=== PATIENT | female | born 1960 | race Caucasian/White ===

== ENCOUNTER 2019-08-26 10:07 | Emergency (ER) | payer MEDICARE, OTHER, SELFPAY ==
[2019-08-26 10:28] VITALS: BP 142/93; PULSE 90; RESP 17; TEMP 36.6; O2SAT 97; BMI 34.3
--- NOTE | 2019-08-26 11:04 | DI.RAD.S_ITS ---
PROCEDURE: XR TOE LT MIN 2V INDICATIONS: pain, injury TECHNIQUE: 3 views of the 5th toe(s) acquired. COMPARISON: None. FINDINGS: Bones: There is a minimally displaced fracture of the distal aspect of the proximal phalanx of the 5th toe. No definite intra-articular involvement can be seen. No additional fractures are detected. No suspicious lytic or blastic lesions are seen. Age-appropriate bony degenerative changes are seen. Soft tissues: No suspicious soft tissue densities. IMPRESSION: Minimally displaced 5th toe fracture, involving the proximal phalanx. Dictated by: Ant Beltre M.D. on 08/26/2019 at 10:37 Approved by: Ant Beltre M.D. on 08/26/2019 at 10:38
--- NOTE | 2019-08-26 11:29 | ED_ITS ---
HPI - Extremity Injury (Lower) <Eda De, COMPOSING ROOM MACHINIST-BC - Last Filed: 08/26/19 13:30> General Chief Complaint: Extremity Injury, Lower Stated Complaint: left great toe injury x4 days Time Seen by Provider: 08/26/19 11:03 Source: patient Mode of arrival: Family Vehicle Limitations: no limitations History of Present Illness HPI Narrative: Female nonsmoker with history of fibromyalgia presents with a chief complaint of left 5th toe pain for 4 days. She states that she was walking in her hotel room several nights ago and stubbed it. She states that she hit it on a leather [employer]. She states that her left 5th toe was pointed at a 90 degree angle. She states she put it back in place, tightened with dental floss and has since shannan taped it. She has been using her as needed oxycodone which she has prescribed for fibromyalgia and has applied ice. She denies any other injuries. She is concerned about fracture or if she dislocated it etc. She denies any previous injuries to the area. Related Data Home Medications Medication Instructions Recorded Confirmed [MILK THISTLE] Q DAY #0 12/05/16 [PAPAYA ENZYMES] QID #0 12/05/16 [TURMERIC] Q DAY #0 12/05/16 biotin 6,000 mcg PO Q DAY #0 12/05/16 celecoxib [Celebrex] 400 mg PO BID #0 12/05/16 cyclobenzaprine 20 mg PO HS #0 12/05/16 magnesium 200 mg PO Q DAY #0 12/05/16 pregabalin [Lyrica] 75 mg PO BID #0 12/05/16 trazodone 100 mg PO HS #0 12/05/16 clotrimazole 10 mg PO 5XD #0 07/09/17 naltrexone 5 mg PO QDAY #0 07/09/17 Previous Rx's Medication Instructions Recorded oxycodone 10 mg PO Q4HP PRN #60 tab 12/09/16 hydrocodone-acetaminophen [[place]] 1 tab PO Q4H PRN #40 tab 07/12/17 Allergies Allergy/AdvReac Type Severity Reaction Status Date / Time levofloxacin [LEVOFLOXACIN] Allergy Unknown TENDONITIS Unverified 01/12/18 12:13 adhesive [ADHESIVE] AdvReac Intermediate SOME TAPE Unverified 01/12/18 12:13 CAUSES REDNESS Review of Systems <PIETER Chin - Last Filed: 08/26/19 13:30> Review of Systems Narrative: GENERAL: Denies chills, fatigue, malaise, fever, sweats. HEENT: Denies sinus pain, ear pain, sore throat, difficulty swallowing, dizziness. RESPIRATORY: Denies dyspnea, cough, wheezing, hemoptysis, sputum. CARDIOVASCULAR: Denies chest pain, palpitations, orthopnea, edema, GASTROINTESTINAL: Denies nausea, vomiting, abdominal pain, diarrhea, constipation, melena. : Denies dysuria, frequency, incontinence, hematuria, urinary retention. MUSCULOSKELETAL: See HPI SKIN: See HPI NEUROLOGIC: Denies weakness, headache, numbness, change in speech, confusion, seizures, incoordination. PSYCHIATRIC: No concerning psychosocial issues. 12 point review of systems is negative except for those stated above Patient History <PIETER Chin - Last Filed: 08/26/19 13:30> Medical History Fibromyalgia (Acute) alcohol intake frequency: a few times a week Substance Use Type: does not use Exam <PIETER Chin - Last Filed: 08/26/19 13:30> Narrative Exam Narrative: GENERAL: This is a well-nourished, well-developed patient, in no acute distress HEAD: Atraumatic. Normocephalic. No temporal or scalp tenderness. EYES: Pupils equal round and reactive. Extraocular motions intact. No scleral icterus. No injection or drainage. ENT: Nose without bleeding, purulent drainage or septal hematoma. Throat without erythema, tonsillar hypertrophy or exudate. Uvula midline. Airway patent. NECK: Trachea midline. No JVD or lymphadenopathy. Supple, nontender, no meningeal signs. CARDIOVASCULAR: Regular rate and rhythm RESPIRATORY: No cough. No increased respiratory effort. No accessory muscle use. EXTREMITIES: Left 5th toe pain to palpation. Capillary refill less than 2 seconds. Positive pedal pulses left foot. Slight ecchymosis noted at the base of left 5th toe. BACK: Nontender without deformity or crepitance. No flank tenderness. NEURO: AOx3. SKIN: No rash or erythema or ecchymosis noted on visible skin other than on extremity exam Initial Vital Signs Initial Vital Signs: Vital Signs Temperature 97.9 F 08/26/19 10:28 Pulse Rate 90 08/26/19 10:28 Respiratory Rate 17 08/26/19 10:28 Blood Pressure 142/93 H 08/26/19 10:28 Pulse Oximetry 97 08/26/19 10:28 <Anca Adams DO - Last Filed: 08/29/19 07:05> Initial Vital Signs Initial Vital Signs: Vital Signs Temperature 97.9 F 08/26/19 10:28 Pulse Rate 90 08/26/19 10:28 Respiratory Rate 17 08/26/19 10:28 Blood Pressure 142/93 H 08/26/19 10:28 Pulse Oximetry 97 08/26/19 10:28 Procedures <PIETER Chin - Last Filed: 08/26/19 13:30> Orthopedic Splinting/Casting Injury #1: Side: left Upper Extremity Immobilizer: shannan tape Lower Extremity Injury Location: toe Lower Extremity Immobilizer: post-op shoe Post splinting neuro exam: intact Post splinting vascular exam: intact Placed by: Nursing Course <PIETER Chin - Last Filed: 08/26/19 13:30> Orders Ordered: ED Orders 08/26/19 11:04 XR toe LT min 2V Stat Vital Signs Vital signs: Vital Signs - 8 hr 08/26/19 10:28 08/26/19 12:41 Temperature 97.9 F Pulse Rate 90 84 Respiratory Rate 17 16 Blood Pressure 142/93 H Blood Pressure [Left Arm] 152/84 H Pulse Oximetry 97 100 <Anca Adams DO - Last Filed: 08/29/19 07:05> Orders Ordered: ED Orders 08/26/19 11:04 XR toe LT min 2V Stat Vital Signs Vital signs: Vital Signs - 8 hr 08/26/19 10:28 08/26/19 12:41 Temperature 97.9 F Pulse Rate 90 84 Respiratory Rate 17 16 Blood Pressure 142/93 H Blood Pressure [Left Arm] 152/84 H Pulse Oximetry 97 100 MDM - Extremity Injury (Lower) <PIETER Chin - Last Filed: 08/26/19 13:30> Imaging Data toe xray : Radiologist's impression: [address] [place] [address] XRay Report Signed Patient: Melissa Maldonado JMR#: [id number] : 2Acct:[id number] Age/Sex: 58 / FDate of Service: 08/26/19 Loc: ED Accession Number: [id number] Procedure: XR toe LT min 2V Ordering Provider: Eda De-EMILIO PROCEDURE: XR TOE LT MIN 2V INDICATIONS: pain, injury TECHNIQUE: 3 views of the 5th toe(s) acquired. COMPARISON: None. FINDINGS: Bones: There is a minimally displaced fracture of the distal aspect of the proximal phalanx of the 5th toe. No definite intra-articular involvement can be seen. No additional fractures are detected. No suspicious lytic or blastic lesions are seen. Age-appropriate bony degenerative changes are seen. Soft tissues: No suspicious soft tissue densities. IMPRESSION: Minimally displaced 5th toe fracture, involving the proximal phalanx. Dictated by: Ant Beltre M.D. on 08/26/2019 at 10:37 Approved by: Ant Beltre M.D. on 08/26/2019 at 10:38 [facility] Narrative Medical decision making narrative: The patient is a 58-year-old female presents with a chief complaint of a toe injury. She states that she stepped it several days ago, and had to put it back into place. X-ray is concerning for. She is neurovascularly intact. She was placed in a postoperative shoe and given shannan tape. I discussed at length [id number] medications as needed and able for pain, rest ice compression elevation. Patient has no questions or concerns upon discharge and states understanding return precautions as well as follow-up care. Encourage PCP follow-up in the next few days and coming back to the emergency department for any acute concerns. Discharge Plan Departure Patient Disposition: Home Clinical Impression: Fracture of toe Qualifiers: Encounter type: initial encounter Toe: lesser toe Fracture type: closed Phalanx: proximal Fracture alignment: displaced Laterality: left Qualified Code(s): S92.512A - Displaced fracture of proximal phalanx of left lesser toe(s), initial encounter for closed fracture Discharge Date/Time: 08/26/19 13:08 Instructions: DI for Toe Fracture, How To Perform RICE (Rest, Ice, Compress, Elevate) Activity Restrictions/Additional Instructions: Unfortunately you broke your toe. Please use rest ice compression elevation as well as [id number] pain medications as needed And able. Please use the shannan tape and postoperative shoe as we discussed. Please come back to the emergency department for any acute concerns. Please follow up with primary care provider in a few days. Prescriptions: No Action pregabalin [Lyrica] 75 MG capsule 75 mg PO BID Qty: 0 RF: 0 celecoxib [Celebrex] 200 MG capsule 400 mg PO BID Qty: 0 RF: 0 cyclobenzaprine 10 MG tablet 20 mg PO HS Qty: 0 RF: 0 trazodone 100 MG tablet 100 mg PO HS Qty: 0 RF: 0 magnesium 200 MG tablet 200 mg PO Q DAY Qty: 0 RF: 0 biotin 2,500 MCG capsule 6,000 mcg PO Q DAY Qty: 0 RF: 0 [MILK THISTLE] Q DAY Qty: 0 RF: 0 [PAPAYA ENZYMES] QID Qty: 0 RF: 0 [TURMERIC] Q DAY Qty: 0 RF: 0 oxycodone 10 MG tablet 10 mg PO Q4HP PRNQty: 60 RF: 0 naltrexone 50 MG tablet 5 mg PO QDAY Qty: 0 RF: 0 clotrimazole 10 MG jenniffer 10 mg PO 5XD Qty: 0 RF: 0 hydrocodone-acetaminophen [[place]] 5 MG/325 MG tablet 1 tab PO Q4H PRNQty: 40 RF: 0 Referrals: [facility] [Provider Group] [facility] [Outside]
[2019-08-26 12:41] VITALS: BP 152/84; PULSE 84; RESP 16; O2SAT 100
== END 2019-08-26 13:08 | disposition home or self-care (01) ==
PROVIDERS: Emergency Provider Nurse Practitioner Family
DX: S92.512A Displaced fracture of proximal phalanx of left lesser toe(s), initial encounter for closed fracture (principal); W22.8XXA Striking against or struck by other objects, initial encounter
CPT/HCPCS: 29550; 73660; 99282; 99283

== ENCOUNTER 2019-12-04 07:37 | Day surgery (SDC) | payer MEDICARE, OTHER, SELFPAY ==
--- NOTE | 2019-12-04 | PATH_ITS ---
[facility] Accession Number: [id number] . 01 Material submitted: . esophagus, E-G Junction - GE JUNCTION . 02 Diagnosis: Gastroesophageal Junction, Biopsy: Squamocolumnar junctional mucosa with no diagnostic abnormality. Negative for intestinal metaplasia. Negative for dysplasia and malignancy. . V 12/05/2019 0935 Local . 02 Electronically signed: . Avinash Gonzalez MD, PhD, Pathologist NPI- [id number] . 01 Gross description: . GE JUNCTION: Received in formalin are 3 fragment(s) of pena, soft tissue measuring 0.1 x 0.1 x 0.1 cm to 0.3 x 0.2 x 0.2 cm submitted entirely in 1 cassette(s) [place] [place]/04/2019 193 Local . 02 Pathologist provided ICD-10: K21.9 . 02 CPT . 195979 Performed at: 01 [facility] [address] [facility], [place], [place] [id number] MD Quique Gilliam MD Phone: [phone] Performed at: 02 [facility] [address] [place], [place] [id number] MD Sushma Biggs MD Phone: [phone]
[2019-12-04 07:50] VITALS: BP 132/89; PULSE 85; RESP 16; TEMP 36.6; BMI 26.5
--- NOTE | 2019-12-04 08:23 | P.HP_ITS ---
History of Present Illness History of Present Illness Chief complaint: [id number] Narrative: Interval-no interval changes in health. Feels well today. 11/01/19 This is a 58-year-old woman with longstanding diverticular disease. She has many episodes of diverticulitis and ultimately underwent a sigmoid resection of the outside facility in 2013. Despite this she continues to have recurring episodes of diverticulitis, her last 1 was approximately 2 months ago was uncomplicated and managed at an outside facility. Her abdominal pain is largely resolved but she still has a minimal amount of left lower quadrant tenderness. She is referred to the office for colonoscopy. In addition her history is significant for Joe-en-Y gastric bypass and she subsequently had significant amount of gastroesophageal reflux disease, she is not currently on a PPI. Patient History Medical History COPD (chronic obstructive pulmonary disease) (Acute) Esophagitis (Acute) Fibromyalgia (Acute) GERD (gastroesophageal reflux disease) (Acute) Hypertension complications (Acute) IBS (irritable bowel syndrome) (Acute) Surgical History Gastric bypass status for obesity (Acute) Family & Social History Family History Mother Hypertension Father Diabetes mellitus Social History: household members spouse Tobacco & Substance use: Smoking Status Former smoker alcohol intake current alcohol intake frequency a few times a week Substance Use Type does not use Meds Home Medications and Allergies Home Medications Medication Instructions Recorded Confirmed Type [MILK THISTLE] Q DAY #0 12/05/16 11/01/19 History [PAPAYA ENZYMES] QID #0 12/05/16 11/01/19 History [TURMERIC] Q DAY #0 12/05/16 11/01/19 History biotin 6,000 mcg PO Q DAY #0 12/05/16 11/01/19 History celecoxib [Celebrex] 400 mg PO BID #0 12/05/16 11/01/19 History cyclobenzaprine 20 mg PO HS #0 12/05/16 11/01/19 History magnesium 200 mg PO Q DAY #0 12/05/16 11/01/19 History pregabalin [Lyrica] 75 mg PO BID #0 12/05/16 11/01/19 History trazodone 100 mg PO HS #0 12/05/16 11/01/19 History oxycodone 10 mg PO Q4HP PRN #60 tab 12/09/16 11/01/19 Rx clotrimazole 10 mg PO 5XD #0 07/09/17 11/01/19 History naltrexone 5 mg PO QDAY #0 07/09/17 11/01/19 History hydrocodone-acetaminophen [[place]] 1 tab PO Q4H PRN #40 tab 07/12/17 11/01/19 Rx cyanocobalamin (vitamin B-12) 1,000 mcg PO DAILY 11/01/19 11/01/19 History 1,000 mcg capsule Allergies Allergy/AdvReac Type Severity Reaction Status Date / Time levofloxacin [LEVOFLOXACIN] Allergy Unknown TENDONITIS Unverified 12/04/19 08:17 adhesive [ADHESIVE] AdvReac Intermediate SOME TAPE Unverified 11/01/19 13:33 CAUSES REDNESS Review of Systems Review of Systems Narrative: A 10 point review of systems is negative except as noted in the HPI Exam Vital Signs (past 8 hours): - 12/04/19 07:50 Temperature 97.8 F Pulse Rate 85 Respiratory Rate 16 Blood Pressure 132/89 Oxygen Delivery Method Room Air Narrative Exam Narrative: General-no acute distress, well nourished HEENT-moist mucous membranes, no scleral icterus Neck-supple, no lymphadenopathy Chest- non labored respirations, clear to auscultation bilaterally Cardiac-regular rate no peripheral edema Abdomen-soft, nontender, non distended Extremities-warm, well perfused Neurological-alert and oriented, no focal deficits Assessment & Plan Assessment and plan (1) Screening for colon cancer: Current visit: Yes Status: Acute (2) GERD (gastroesophageal reflux disease): Current visit: Yes Status: Acute Assessment & Plan narrative: 58-year-old female with a long history of diverticular disease. She underwent a sigmoid colectomy at an outside facility in 2013 but despite this she had a recent episode of diverticulitis uncomplicated managed with antibiotics 2 months ago. She is recovering from that but continues to have some mild left lower quadrant pain. A colonoscopy is indicated in the setting of of recent diverticulitis has now been appropriate period of time between the illness to in order scope her safely. In addition she has a history of a Joe-en-Y gastric bypass and significant gastroesophageal reflux disease for which performing a a esophagoduodenoscopy is indicated as well. We discussed the nature of these procedures including the risks of bleeding infection perforation need for further procedure.
[2019-12-04] MEDS: SODIUM CHLORIDE 0.9% 1,000 ML 200 ML IV (08:29)
--- NOTE | 2019-12-04 08:57 | PM.OP.ENDO ---
Operative Date/Time/Diagnoses Date of procedure: 12/04/19 Time of procedure: 08:57 Pre-op diagnosis: Screening colonoscopy, GERD Post-op diagnosis: same Procedure & Clinicians Study performed: colonoscopy esophagoduodenoscopy Same procedure as scheduled: Yes Indications: Screening colonoscopy,worsening GERD Surgeon: Nilton Hernnadez Procedure Notes SCOAP/Timeout: performed Procedure in detail: Patient placed in left lateral decubitus position. Time out was performed. Procedural sedation was administered with Versed and Fentanyl. A bite block was placed. the scope was inserted into the mouth and advanced through the esophagus and into the stomach. She had a previous gastric bypass the GJ anastamosis was normal. The scope was retroflexed within the stomach and there was no hiatal hernia. No ulcers, or gastritis. The scope was withdrawn into the esophagus the Z line was seen at 30 cm from the incisions. There was no hernandez's esophagitis or masses or strictures. 4 random biopsies of the Z line were taken with forceps. Stomach was desufflated and scope removed. Patient tolerated procedure well. Patient placed in left lateral decubitus position. Time out was performed. Procedural sedation was administered with Versed and Fentanyl. A rectal exam demonstrated no external hemorrhoids no internal masses. Colonoscopy scope was placed into the rectum and advanced through the colon to the cecum. The ileocecal valve was identified. The scope was then slowly withdrawn examining colon thoroughly in all directions. The colonoscopy was notable for the following 1. Ernst diverticulosis 2. Quality of prep fair 3. Grade 1 internal hemorrhoids Scope withdrawal time: 6 Sedation minutes: 25 Findings: diverticulosis and internal hemorrhoids Specimen(s): other (GE junction) Complications: none Impression: Diverticulosis, normal gastric anatomy sp bypass Post-procedure Recommendations: Colonscopy in 10 years and High fiber diet Disposition: same day surgery
[2019-12-04 09:00] VITALS: BP 158/96; PULSE 86; RESP 20; TEMP 36.2; O2SAT 97
[2019-12-04] MEDS: fentaNYL 250 MCG/5 ML INJ IV (09:00)
[2019-12-04] MEDS: LIDOCAINE 4% SOLN 50 ML 20 ML TOP (09:00)
[2019-12-04] MEDS: MIDAZOLAM 5 MG/5 ML VIAL IV (09:01)
[2019-12-04 09:05] VITALS: BP 153/89; PULSE 85; RESP 16; O2SAT 95
[2019-12-04 09:10] VITALS: BP 127/98; PULSE 90; RESP 20; O2SAT 96
[2019-12-04 09:20] VITALS: BP 155/92; PULSE 82; RESP 20; O2SAT 97
== END 2019-12-04 09:35 | disposition home or self-care (01) ==
PROVIDERS: PCP Family Medicine; Referring Provider Surgery; Visit Provider Surgery
PROC: 0DJ08ZZ Inspection of Upper Intestinal Tract, Via Natural or Artificial Opening Endoscopic (ICD-10-PCS; CPT 43235; principal; 2019-12-04 08:30)
PROC: 0DJD8ZZ Inspection of Lower Intestinal Tract, Via Natural or Artificial Opening Endoscopic (ICD-10-PCS; CPT 45378; 2019-12-04 08:30)
DX: Z12.11 Encounter for screening for malignant neoplasm of colon (principal); K21.9 Gastro-esophageal reflux disease without esophagitis; K57.30 Diverticulosis of large intestine without perforation or abscess without bleeding; K64.0 First degree hemorrhoids
CPT/HCPCS: 43239; G0121; 99152; 99153; J2250; J3010

== ENCOUNTER → 2021-10-21 10:00 | Outpatient (CLI) | payer MEDICARE, OTHER, SELFPAY ==
[2021-10-21 11:35] LABS: Add Manual Diff / Slide Review NO; Basophils Absolute Auto 0 /uL (0-100); Basophils Percent Auto 0.4 % (0-2); Eosinophils Absolute Auto 0 /uL (0-450); Eosinophils Percent Auto 0.5 % (2-4); Hematocrit 43.2 % (36-46); Hemoglobin 14.4 g/dL (12.0-16.0); Lymphocytes Absolute Auto 1800 /uL (1100-4500); Mean Corpuscular HGB Conc 33.4 % (30-36); Mean Corpuscular Hemoglobin 32.1 PG (26-34); Mean Corpuscular Volume 96.2 fL (80-100); Monocytes Absolute Auto 500 /uL (0-900); Monocytes Percent Auto 6.8 % (3-14); Neutrophils Absolute Auto 5300 /uL (1500-7000); Neutrophils Percent Auto 69.3 % (50-75); Platelet Count 259 X10^3/uL (150-400); Red Blood Cell Count 4.49 X10^6/uL (4.0-5.2); Red Cell Distribution Width 13.5 % (11.6-14.8); White Blood Cell Count 7.7 X10^3/uL (4.5-11.0)
[2021-10-21 12:03] LABS: BUN Creatinine Ratio 15.8 (6-22); Blood Urea Nitrogen 9 mg/dL (7-17); Calcium 9.5 mg/dL (8.4-10.2); Carbon Dioxide 30 mmol/L (22-32); Chloride 101 mmol/L (98-107); Estimated Glomerular Filt Rate > 60.0 mL/min (>60); Glucose 111 mg/dL (70-100); HEMOLYSIS < 15 (0-50); Potassium 4.6 mmol/L (3.4-5.1); Sodium 136 mmol/L (137-145)
[2021-10-21 12:09] LABS: Hemoglobin A1C% w Est Avg Glu 5.3 % (4.0-6.0)
== END ==
PROVIDERS: PCP Family Medicine; Referring Provider Orthopaedic Surgery; Visit Provider Orthopaedic Surgery
DX: Z01.818 Encounter for other preprocedural examination (principal); R73.9 Hyperglycemia, unspecified; M25.562 Pain in left knee; Z01.812 Encounter for preprocedural laboratory examination
CPT/HCPCS: 36415; 80048; 83036; 85025; 93005; 93010

== ENCOUNTER → 2021-11-17 11:27 | Outpatient (CLI) | payer MEDICARE, OTHER, SELFPAY ==
[2021-11-17 13:49] LABS: COVID19 -Nasal RAPID Negative (Negative)
== END ==
PROVIDERS: PCP Family Medicine; Visit Provider Family Medicine Sleep Medicine
DX: Z20.822 Contact with and (suspected) exposure to COVID-19 (principal)
CPT/HCPCS: 87635; C9803

== ENCOUNTER 2021-11-19 12:12 | Day surgery (SDC) | payer MEDICARE, OTHER, SELFPAY ==
[2021-10-30 09:36] VITALS: BMI 35.4
[2021-11-19] VITALS (14 sets, daily range): BP systolic 110–179; BP diastolic 59–92; PULSE 53–82; RESP 15–18; TEMP 35.8–37.3; O2SAT 95–99; BMI 35.4
--- NOTE | 2021-11-19 08:00 | DI.RAD.S_ITS ---
PROCEDURE: XR KNEE RT 1TO2V INDICATIONS: post op total knee TECHNIQUE: 2 view(s) of the knee acquired. COMPARISON: [facility], , KNEE 1-2 VIEWS LEFT, 04/16/2014, 10:39. FINDINGS: Suboptimal cross-table lateral view. Bones: Patient is status post knee joint arthroplasty. Hardware components are in expected positions. Visualized bony structures are intact. Soft tissues: Overlying postoperative changes are noted. IMPRESSION: Expected postop appearance. Dictated by: Williams Cooper M.D. on 11/19/2021 at 17:17 Approved by: Williams Cooper M.D. on 11/19/2021 at 17:17
[2021-11-19] MEDS: ACETAMINOPHEN 325 MG TABLET 975 MG PO (13:16)
[2021-11-19] MEDS: CELECOXIB 200 MG CAPSULE PO (13:16)
[2021-11-19] MEDS: PREGABALIN 75 MG CAPSULE PO (13:16)
[2021-11-19] MEDS: LACTATED RINGERS 1,000 ML 42 ML IV ×2 (13:28→16:35)
--- NOTE | 2021-11-19 14:16 | PM.PREOP ---
Pre-operative Note COVID-19 COVID-19 status: Negative Result date/Date tested (Pos, Neg/Pending): 11/17/21 Criteria for continued procedure: Increased loss of function, Continuing or worsening of significant or severe pain and Non-surgical alternatives not available or appropriate per current SOC Interval Note History & Physical reviewed/Exam performed by Physician: Yes Changes to H&P: No
[2021-11-19] MEDS: TRANEXAMIC ACID 1,000 MG VIAL 1000 MG INJ ×2 (15:08→16:19)
[2021-11-19] MEDS: CEFAZOLIN 2 GM/20 ML SYRINGE IV (15:10)
--- NOTE | 2021-11-19 15:32 | SUR.OPER ---
Supine on padded OR bed. Pillow under head, arms secured on padded armboards <90 degree abduction. Safety belt across torso. Non-operative leg secured with tape over blanket over lower leg. Operative leg secured in [employer] positioner.
[2021-11-19] MEDS: BUPIVACAINE LIPOSOME 266 MG/20 ML VIAL INJ (15:38)
[2021-11-19] MEDS: MORPHINE 4 MG/ML INJ INJ (15:39)
[2021-11-19] MEDS: BUPIVACAINE 0.25% W/ EPI 30 ML VIAL 60 ML INJ (15:41)
--- NOTE | 2021-11-19 16:31 | PM.OP.1 ---
Operative Date/Time/Diagnoses Date of procedure: 11/19/21 Time of procedure: 16:31 Pre-op diagnosis: Right knee osteoarthritis Post-op diagnosis: same Procedure & Clinicians Procedure: Right total knee replacement Same procedure as scheduled: Yes Indications: The patient has had progressively worsening right knee pain with radiographic changes consistent with arthritis. Non-operative management has failed and the patient has requested total knee replacement. The risks, benefits and alternatives to surgery were discussed with the patient prior to proceeding. Risks discussed included, but were not limited to, failure to relieve pain, stiffness, infection, nerve damage, deep venous thrombosis, pulmonary embolism, stroke, coma, heart attack, permanent paralysis and , as well as the potential need for eventual revision of the prosthetic. Surgeon: Henry Olmos Data Virtualization Consultant: Monserrat Love Click Yes if Unassisted: No Anesthesia Type: General, Spinal and Local Operative Notes Findings: Tricompartmental osteoarthritis worst in the medial and patellofemoral joints. Closure Type: primary Specimen(s): none sent Prosthetic devices, grafts, tissues, transplants, or devices: Implants used in this procedure were manufactured by the [employer] and [employer] and included the BCS II Journey total knee replacement with a size 4 right Oxinium femoral component, a size 4 right non porous tibial base plate, a 10 mm cross-linked polyethylene tibial insert and a 32 mm oval Soila II patella. Applied: implant(s) Estimated Blood Loss (mL): 25 Blood products transfused: none Tourniquet time (min): 46 Procedure in detail: The patient was seen in the pre-operative area, where the patient identified the right knee as the operative site and this was marked with my initials. The patient received pre-operative antibiotics, and was taken to the operating room and placed on the operative table in the supine position. After satisfactory anesthesia, a drug and alcohol counselor out was performed. The right leg was encircled with a tourniquet about the proximal thigh, and the leg was prepared from the toes to the tourniquet with ChloraPrep in the usual fashion and draped through sterile drapes. The leg was elevated and exsanguinated with Eschmark bandage and the tourniquet inflated to 250 mmHg pressure. The knee was approached through an approximately 18 cm incision centered over the patella and carried into the knee through a medial parapatellar arthrotomy. The anterior osteophytes and soft tissues were removed. The rotational landmarks of [place]'s line and the transepicondylar axis were marked on the femur with electrocautery, and intramedullary guide holes for the femur and tibia were created. The distal femoral cut was made in 6 degrees of valgus using the intramedullary guide at the primary cut setting. The proximal tibial cut was then made using the intramedullary guide, taking 9 mm of bone off the less involved side. The extension gap was checked and the rotation of the femoral component confirmed with the gap balancing system. The anterior, posterior and chamfer cuts were then made. The posterior osteophytes and soft tissues were then removed. The posterior capsule was injected with part of a mixture of 60 ml 0.25% Marcaine mixed with 20 ml Exparel and 4 mg of morphine for post-operative pain control. The remainder of this mixture was injected into the capsule and subcutaneous tissues during cement curing. The tibia was prepared with the rotation set by an extra medullary guide. Trial tibial and femoral components were then placed and the intercondylar notch cut through the femoral trial. Range of motion was 0-135 degrees, with good stability throughout the range. The patella was then cut to accommodate the patellar prosthetic. There was no need for a lateral release. The trials were then removed, and the femoral hole plugged with a bone plug. The bone was prepared with pulsatile lavage, and dried with a sponge. Cement was applied and the final prosthetics placed. Excess cement was removed during and after cement curing. After confirming there was no extruded cement posteriorly, the final tibial insert was placed. The knee was copiously irrigated and the tourniquet deflated. Hemostasis was obtained. The capsule was closed with interrupted # 2 polyester suture. The subcutaneous layer was closed with 3-0 Vicryl, and the skin with a running 3-0 V-Lock suture and Dermabond. An Aquacel Ag dressing was applied and the patient was taken to recovery having tolerated the procedure well. Complications: none Post-operative Condition: stable Disposition: PACU Plan for aftercare: The patient will be maintained on a standard total knee replacement protocol with weight bearing as tolerated. The patient will receive aspirin and sequential compression devices for DVT prophylaxis. The patient will be discharged home when safe for the home environment.
[2021-11-19] MEDS: IBUPROFEN 400 MG TABLET PO ×2 (18:01→21:12)
[2021-11-19] MEDS: LACTATED RINGERS 1,000 ML 100 ML IV (18:02)
--- NOTE | 2021-11-19 18:35 | PC.NURSE ---
pt already took her naltrexone tonight. meds are now in the drawer for pharmacy to ID
[2021-11-19] MEDS: OXYCODONE IR 10 MG TABLET 20 MG PO (20:03)
[2021-11-19] MEDS: ASPIRIN EC 81 MG TABLET PO (21:12)
[2021-11-19] MEDS: TRAZODONE 100 MG TABLET PO (21:12)
[2021-11-19] MEDS: CYCLOBENZAPRINE 10 MG TABLET PO (21:12)
[2021-11-19] MEDS: DOCUSATE 100 MG CAPSULE PO (21:12)
[2021-11-19] MEDS: PANTOPRAZOLE DR 20 MG TABLET PO (21:12)
[2021-11-19] MEDS: ACETAMINOPHEN 325 MG TABLET 650 MG PO (21:12)
[2021-11-19] MEDS: MONTELUKAST 10 MG TABLET PO (21:12)
[2021-11-20] MEDS: OXYCODONE IR 10 MG TABLET 20 MG PO ×3 (00:03→09:02)
[2021-11-20] MEDS: IBUPROFEN 400 MG TABLET PO ×3 (01:18→08:54)
[2021-11-20 04:32] VITALS: BP 118/55; PULSE 65; RESP 16; TEMP 36.3; O2SAT 97
--- NOTE | 2021-11-20 06:45 | P.DS_ITS ---
History of Present Illness History of Present Illness Date Patient Seen: 11/20/21 Time Patient Seen: 06:45 Chief complaint: OPB Narrative: The history and physical is contained in the chart previously completed note. Please refer to that note for this information. Discharge Providers Provider Date of admission: November 19, 2021 Discharge Date: 11/20/21 Primary care physician: Aj Mims MD Consults: 11/19/21 17:23 Consult to Discharge Planning Routine Comment: Consult to Physical Therapy Evaluate & Treat Comment: Physician Instructions: postop TKA protocol Discharge provider: Henry Olmos MD Summary Hospital Course Discharge Diagnosis: 1. Right knee osteoarthritis Hospital Course: The patient was admitted to the hospital and taken directly to the operating room on November 19, 2021 where she underwent a right total knee replacement without complications. She was able to ambulate in her room and the hallway overnight. On postoperative day 1 she is comfortable on her current pain management and expresses a desire for discharge. Status at Discharge Cognitive/behavioral status at discharge: at baseline, oriented Functional status at discharge: uses cane/walker Overall status at discharge: patient is progressing back to baseline Time Spent with Patient Time spent: Less than 30 minutes Exam Vital Signs (past 8 hours): - 11/19/21 23:59 11/20/21 04:32 Temperature 98.5 F 97.3 F L Pulse Rate 70 65 Respiratory Rate 16 16 Blood Pressure 125/67 118/55 L Pulse Oximetry 96 97 Oxygen Delivery Method Room Air Oxygen Flow Rate 0 Narrative Exam Narrative: Right knee wound is dressed with no drainage on the bandage. Calf is soft. Light touch and motion are intact in the right lower extremity. [facility] Medical History Anemia Asthma Cerda's esophagus COPD (chronic obstructive pulmonary disease) Depression Diverticulosis Edema Esophagitis Fibromyalgia GERD (gastroesophageal reflux disease) Hydradenitis (~2015) Hypertension complications Hypoglycemia IBS (irritable bowel syndrome) MRSA (methicillin resistant Staphylococcus aureus) (~2013) Osteoarthritis Shortness of breath Surgical History Gastric bypass status for obesity (12/2002) History of bilateral tubal ligation History of cholecystectomy History of surgery History of surgery (~2020) History of surgery (~2013) History of total left knee replacement (2013) Hx of appendectomy Hx of bilateral breast reduction surgery Hx of hernia repair Hx of repair of left rotator cuff Hx of toe surgery Hx of tonsillectomy Family History Mother Hypertension Father Diabetes mellitus Social History household members: spouse Smoking Status: Former smoker alcohol intake: current Discharge Assessment & Plan Assessment and Plan Assessment: Stable postoperative day 1 status post right total knee replacement. The patient has independently ambulated with her walker in the hallway. Plan of Treatment: Patient will be discharged today. She will follow up my office in 10-14 days. She will have outpatient physical therapy. Prescriptions have been sent into [facility] in [place] for oxycodone to be used in addition to the oxycodone she receives from her primary caregiver and Vistar[facility]. In addition she has been instructed in the use of Tylenol and ibuprofen for pain control and the use of low-dose aspirin for DVT prophylaxis. Discharge Plan Discharge Plan Patient Disposition: Home Discharge orders & Medications Discharge Orders: Discharge (Order); Ordered 11/20/21 Ordered By: Henry Olmos Prescriptions: New acetaminophen 325 mg Tablet 650 mg PO TID 30 Days Qty: 180 0RF aspirin 81 mg Tablet,Delayed Release (Dr/Ec) 81 mg PO BID 42 Days Qty: 84 0RF ibuprofen 400 mg Tablet 400 mg PO Q4HR 30 Days 0RF hydroxyzine pamoate 25 mg Capsule 25 mg PO Q6HR PRN (Reason: Nausea) Qty: 30 0RF oxycodone 10 mg Tablet 10 mg PO Q4H PRN (Reason: Pain, Severe (7-10)) Qty: 40 0RF Continued cyclobenzaprine 10 MG tablet 10 mg PO HS Qty: 0 0RF trazodone 100 MG tablet 100 mg PO HS Qty: 0 0RF milk thistle 500 mg Capsule 1,000 mg PO DAILY Qty: 0 0RF Rx Instructions: give with meal/snack magnesium 200 MG tablet 400 mg PO Q DAY Qty: 0 0RF turmeric 400 mg Capsule 1,310 mg PO DAILY Qty: 0 0RF naltrexone 50 MG tablet 5 mg PO QDAY Qty: 0 0RF Label Comments: Takes in the PM clotrimazole 10 MG jenniffer 10 mg PO 5XD PRN (Reason: Thrush) Qty: 0 0RF cyanocobalamin (vitamin B-12) 1,000 mcg capsule 1,000 mcg PO QMONTH 0RF losartan 50 mg Tablet 50 mg PO DAILY Qty: 0 0RF omeprazole 20 mg Tablet,Delayed Release (Dr/Ec) 20 mg PO BID Qty: 0 0RF oxycodone 10 MG tablet 20 mg PO Q4HP PRN (Reason: Pain (Scale Score 4-6)) 0RF fluticasone propion-salmeterol [Advair Diskus] 250-50 mcg/dose Blister With Device 1 inh INHALATION BID 0RF montelukast 10 mg Tablet 10 mg PO BEDTIME 0RF Follow up/Referrals: Henry Olmos MD [Physician] - 2 Weeks Aj Mims MD [Primary Care Provider] - Diet/Activity/Treatments Diet: Diet as Tolerated and Regular Activity: You may bear weight as tolerated on your right leg. Cold/Heat Therapy: You may apply ice for 15 minutes every hour as needed for pain control to the right knee. Skin/Wound/Dressing Care Report to your healthcare provider any signs of infection, such as:: chills, fever, night sweats, increased pain, unusual drainage and unusual redness Dressing: You may remove the Dino wrap 3 days after surgery and shower normally with the deeper dressing in place. Leave the deeper dressing in place until your postoperative follow-up. If the central strip of the dressing becomes saturated with either water or blood, please call the office to have it evaluated. Visit Report/Discharge Packet Instructions: DI for Knee Replacement Stand Alone Forms: Surgery Discharge Discharge Data Primary Care Provider: Aj Mims Attending Provider: Henry Olmos Quality VTE Deep Vein Thrombosis/Pulmonary Embolism Present on Admission: No
[2021-11-20 07:39] LABS: Hematocrit 33.3 % (36-46); Hemoglobin 11.4 g/dL (12.0-16.0)
[2021-11-20 08:00] VITALS: BP 126/69; PULSE 64; RESP 18; TEMP 36.2
[2021-11-20] MEDS: ASPIRIN EC 81 MG TABLET PO (08:53)
[2021-11-20] MEDS: ACETAMINOPHEN 325 MG TABLET 650 MG PO (08:53)
[2021-11-20 08:54] VITALS: BP 126/69; PULSE 64
[2021-11-20] MEDS: MAGNESIUM OXIDE 400 MG TABLET PO (08:54)
[2021-11-20] MEDS: LOSARTAN 50 MG TABLET PO (08:54)
[2021-11-20] MEDS: PANTOPRAZOLE DR 20 MG TABLET PO (08:54)
[2021-11-20] MEDS: DOCUSATE 100 MG CAPSULE PO (08:55)
--- NOTE | 2021-11-20 10:05 | PT.IIE ---
Current Diagnoses Unilateral primary osteoarthritis, right knee (11/19/21) Surgery Performed Operation Date: 11/19/21 13:45 Actual Procedures p Total Knee Arthroplasty(Right) - Henry Olmos MD Medical History (Last Reviewed 11/19/21 @ 13:12 by Avinash Tee RN) Anemia Asthma Cerda's esophagus COPD (chronic obstructive pulmonary disease) Depression Diverticulosis Edema Esophagitis Fibromyalgia GERD (gastroesophageal reflux disease) Hydradenitis (~2015) Hypertension complications Hypoglycemia IBS (irritable bowel syndrome) MRSA (methicillin resistant Staphylococcus aureus) (~2013) Osteoarthritis Shortness of breath Physical Therapy Inpatient Evaluation/Re-Eval M1 PT/OT-IP Prior Functional Status Start: 11/20/21 12:22 Freq: NEEDED Status: Active Protocol: Document 11/20/21 10:50 AB (Rec: 11/20/21 12:31 AB [id number]) Medical Review Prior Functional Status Medical History Reviewed Yes Communication able to make needs known Mobility and Gait pt stated that she is independent with all mobilities and ambulates using 2 hiking poles but occasionally ambulates without AD Social History Household Members spouse Living Arrangements House Number of Floors (Floors) One Floor Number of Stairs To Enter/Railing? 3 platform steps to enter Home Environment High Toilet,Walk in Shower, Built-In Shower Seat Home Equipment Hand Held Shower Additional Social History Comment pt has a toilet safety frame M2 PT-IP Current Condition Start: 11/20/21 12:22 Freq: NEEDED Status: Active Protocol: Document 11/20/21 10:50 AB (Rec: 11/20/21 12:31 AB [id number]) Physical Therapy Current Condition Current Condition Evaluation Date 11/20/21 Treatment Diagnosis s/p R TKA; difficulty in walking Onset Date 11/19/21 M3 PT-IP Subjective Start: 11/20/21 12:22 Freq: NEEDED Status: Active Protocol: Document 11/20/21 10:50 AB (Rec: 11/20/21 12:31 AB [id number]) Subjective Physical Therapy Visit Type Type Initial Evaluation Visit Start Time 10:05 Visit Stop Time 10:30 Total Visit Minutes 25 Number of BRICK SETTER Visits 0 Physical Therapy Visit Comments Patient Comments agreeable to do PT Therapy Pain Assessment Pain When Pain Assessed At Rest Pain Present Pain Present Pain Reported Location Right Knee Intensity 4 Scale Used Numeric (0 - 10) Pain Management Techniques Distraction,Modification of Treatment,Re-positioning, Timing of Activity with Medications M4 PT-IP Mobility and Gait Start: 11/20/21 12:22 Freq: NEEDED Status: Active Protocol: Document 11/20/21 10:50 AB (Rec: 11/20/21 12:31 AB [id number]) PT-Bed Mobility Assessment Supine to Sit Supine to Sit Standby Assistance PT-Transfer Assessment Sit to and From Stand Sit to and from Stand Standby Assistance Equipment Transfer Assistive Device Gait Belt,Front Wheeled Walker Orthotic/Prosthetic Devices or Brace: No Transfers Transfer Destination Chair Transfer Technique Stand Step Pivot Transfer Ability Level of Assist Standby Assistance,1 Person Assistance Comments Mobility Comments pt completed supine to sit SBA . sat on EOB SBA. completed sit to stand SBA and transferred to chair using FWW SBA. educated pt on safety and stair climbing. pt ambulated in room ~ 40 ft and agreed to walk in the hallway using FWW SBA ~ 125 ft. completed up/down platform step using FWW CGA and cues. pt ambulated back to her room. agreed to sit up on chair. positioned on chair. call light and table placed within reach. Informed nurse regarding pt's mobility. Gait Assessment Gait Gait Assistance Required: Standby Assistance Distance (Feet) 125 Able to Maintain Weight Bearing Status Yes During Gait Assistive Devices Assistive Device Gait Belt,Front Wheeled Walker Orthotic/Prosthetic Devices or Brace: No Gait Deviations General Gait Pattern Decreased Stride Length, Decreased Feet Clearance Factors Limiting Gait Function Factors Limiting Gait Function Decreased Activity Tolerance, Decreased Strength,Limited Range of Motion,Pain,Poor Balance,Poor Safety Awareness Stair Climbing Assessment Evaluation Level of Assist On Stairs Contact Guard Assistance,1 Person Assistance Devices Stair Climbing Assistive Devices Front Wheel Walker Technique/Endurance Stair Climbing Direction Ascend and Descend Stair Climbing Technique Step to Step Number of Steps Climbed 1 Query Text: Stair Climbing Set # Repetitions (reps) 3 PT-Balance Assessment Sitting Balance and Reactions Static Sitting Balance Ability Normal Dynamic Sitting Balance Ability Normal Standing Balance and Reactions Static Standing Balance Ability Good Dynamic Standing Balance Ability Fair Device Used FWW M5 PT-IP Objective Assessments Start: 11/20/21 12:22 Freq: NEEDED Status: Active Protocol: Document 11/20/21 10:50 AB (Rec: 11/20/21 12:31 AB [id number]) Orientation Orientation/Cognition Level of Alertness Alert Orientation Name,Age,Birthday,Month,Date, Year,Day of Week,Place, Situation Language Function Ability No Deficits Noted Safety Awareness Understands Safety Issues Memory Description No Deficits Noted Gross Range of Motion Lower Extremity ROM Impairments R knee flexion: ~ 70 deg PROM Strength Lower Extremity Strength Assessment Right Impaired Hip 4-/5 Knee 4-/5 Coordination Assessment Gross Coordination Gross Coordination WNL Sensation Assessment Sensation Gross Sensation WNL Muscle Tone Muscle Tone WNL Yes M6 PT-IP Treatment Start: 11/20/21 12:22 Freq: NEEDED Status: Active Protocol: Document 11/20/21 10:50 AB (Rec: 11/20/21 12:31 AB [id number]) Physical Therapy Treatment Education Education Provided Precautions,Weight Bearing Status,Post-Op Packet,Safety Other Treatments Other Treatment Performed reviewed HEP M7 PT-IP Assessment and Plan Start: 11/20/21 12:22 Freq: NEEDED Status: Active Protocol: Document 11/20/21 10:50 AB (Rec: 11/20/21 12:31 AB [id number]) PT Summary Assessment and Plan Potential Rehabilitation Potential Good Status of Condition at Evaluation Stable Summary Impairments Pain,ROM,Strength,Balance, Coordination,Bed Mobility, Transfers,Gait,Activity Tolerance Assessment Summary pt requiring SBA with mobility using FWW. pt plans to go home with spouse to assist and has outpt PT set up. pt may go home when medically stable. Goals Bed Mobility Goal Independent Transfer Goal Independent,Front Wheeled Walker Gait Goal Independent,Front Wheel Walker Gait Distance 200 Other Goals up/down 3 platform steps using FWW mod I Days to Meet Goals 3 Frequency of Treatment Frequency Of Treatment Twice a Day Treatment Plan Physical Therapy Treatment Plan Bed Mobility Training,Transfer Training,Gait Training, Therapeutic Exercise,Balance Retraining,Post Op Education, Discharge Planning,Hot or Cold Pack,Neuromuscular Re-ed, Coordination Retraining,Manual Therapy Weight Bearing Status Weight Bearing Status Weight Bear as Tolerated Allowed Weight Bearing Amount (enter % RLE WBAT or #) (%) Recommendations To Nursing Amount of Assist Needed Standby Assistance Discharge Recommendations PT Discharge Recommendations Home with Assistance, Outpatient PT Transportation Needs at Discharge Private Vehicle
--- NOTE | 2021-11-20 10:12 | PC.NURSE ---
Addendum entered by Michelle Umaña R.N. 11/20/21 11:24: Pt given D/C instructions w/understanding SL D/C'd intact. Escorted Via W/C by staff to waiting vehicle Stable post op course. Original Note: Pt received D/C orders. SBA to BR w/ FFW SpO2 98% RA Aquacell/primo dsg to right knee CDI Sl intact. Call light w/in reach.
== END 2021-11-20 10:41 | disposition home or self-care (01) ==
LOC: OR 12:13 → AC 12:13
PROVIDERS: PCP Family Medicine; Referring Provider Orthopaedic Surgery; Visit Provider Orthopaedic Surgery
PROC: 0SRC0JZ Replacement of Right Knee Joint with Synthetic Substitute, Open Approach (ICD-10-PCS; CPT 27447; principal; 2021-11-19 13:45)
DX: M17.11 Unilateral primary osteoarthritis, right knee (principal); J44.9 Chronic obstructive pulmonary disease, unspecified; M79.7 Fibromyalgia
CPT/HCPCS: 27447; 36415; 73560; 85014; 85018; 94760; 97161; C1776; C9290; J0690; J2250; J2270; J2704; J3010

== ENCOUNTER → 2022-03-07 11:32 | Outpatient (CLI) | payer MEDICARE, OTHER, SELFPAY ==
[2021-11-19 18:35] VITALS: BMI 35.4
--- NOTE | 2022-03-07 11:33 | DI.MRI.S_ITS ---
PROCEDURE: MR KNEE RT WO CON INDICATIONS: Other chronic postprocedural pain TECHNIQUE: Noncontrast sagittal PD fast spin echo and T2 fast spin echo with fat saturation, sagittal 3-D FLASH with fat saturation; coronal T1 spin echo and PD fast spin echo with fat saturation, and axial PD fast spin echo with fat saturation through the knee. COMPARISON: CR, KNEE SERIES RT, 05/12/2016, 9:52. [facility], MR, KNEE WITHOUT CONTRAST, 04/10/2016, 9:03. [facility], CR, XR KNEE 4+ VIEWS RIGHT, 12/29/2021, 14:14. [facility], CR, XR KNEE RT 1TO2V, 11/19/2021, 16:47. [facility], CR, XR KNEE ARTHRITIC SERIES BI, 09/25/2021, 13:17. FINDINGS: There is total knee arthroplasty with metallic artifacts from knee prosthesis obscuring adjacent structures. Bones: Mild T2 hyperintensity around the tibial prosthesis stem. Joint: There is moderate knee joint effusion. No Ambrosio's cyst. IMPRESSION: 1. There is mild T2 hyperintensity around the tibial prosthesis stem. If there is clinical concern for prosthesis loosening, a triple phase bone scan would be helpful. 2. Moderate knee joint effusion. 3. Limited examination due to metallic artifacts from knee prosthesis. Dictated by: Maine Livingston M.D. on 03/09/2022 at 8:16 Approved by: Maine Livingston M.D. on 03/09/2022 at 9:18
== END ==
PROVIDERS: PCP Family Medicine; Referring Provider Family Medicine; Visit Provider Family Medicine
DX: G89.28 Other chronic postprocedural pain (principal); M25.461 Effusion, right knee; Z96.651 Presence of right artificial knee joint
CPT/HCPCS: 73721

== ENCOUNTER → 2022-08-28 09:47 | Outpatient (CLI) | payer MEDICARE, OTHER, SELFPAY ==
[2021-11-19 18:35] VITALS: BMI 35.4
[2022-08-28 10:26] LABS: Hematocrit 41.1 % (36-46); Hemoglobin 13.9 g/dL (12.0-16.0); Mean Corpuscular HGB Conc 33.7 % (30-36); Mean Corpuscular Hemoglobin 32.2 PG (26-34); Mean Corpuscular Volume 95.5 fL (80-100); Platelet Count 263 X10^3/uL (150-400); Red Blood Cell Count 4.31 X10^6/uL (4.0-5.2); Red Cell Distribution Width 12.9 % (11.6-14.8); White Blood Cell Count 12.9 X10^3/uL (4.5-11.0)
[2022-08-28 10:55] LABS: Alanine Aminotransferase 21 IU/L (<35); Albumin 3.9 g/dL (3.5-5.0); Albumin Globulin Ratio 1.6 (1.0-2.8); Alkaline Phosphatase 90 U/L (38-126); Aspartate Aminotransferase 23 IU/L (14-36); BUN Creatinine Ratio 16.4 (6-22); Bilirubin Total 0.8 mg/dL (0.2-1.3); Blood Urea Nitrogen 9 mg/dL (7-17); Calcium 8.8 mg/dL (8.4-10.2); Carbon Dioxide 29 mmol/L (22-32); Chloride 101 mmol/L (98-107); Estimated Glomerular Filt Rate > 60 mL/min (>60); Globulin 2.5 g/dL (1.7-4.1); Glucose 140 mg/dL (80-110); HEMOLYSIS < 15 (0-50); Potassium 4.6 mmol/L (3.4-5.1); Sodium 134 mmol/L (137-145); Total Protein 6.4 g/dL (6.3-8.2)
== END ==
PROVIDERS: PCP Family Medicine; Referring Provider Nurse Practitioner Family; Visit Provider Nurse Practitioner Family
DX: Z01.810 Encounter for preprocedural cardiovascular examination (principal)
CPT/HCPCS: 36415; 80053; 85027; 93005

== ENCOUNTER → 2022-10-16 10:30 | Outpatient (CLI) | payer MEDICARE, OTHER, SELFPAY ==
[2021-11-19 18:35] VITALS: BMI 35.4
[2022-10-16 13:50] LABS: COVID19 -Nasal RAPID Negative (Negative)
== END ==
PROVIDERS: PCP Family Medicine; Visit Provider Surgery
DX: Z01.812 Encounter for preprocedural laboratory examination (principal); Z20.822 Contact with and (suspected) exposure to COVID-19
CPT/HCPCS: 87635; C9803

== ENCOUNTER 2022-10-19 08:55 | Day surgery (SDC) | payer MEDICARE, OTHER, SELFPAY ==
[2021-11-19 18:35] VITALS: BMI 35.4
[2022-10-19 09:13] VITALS: BP 128/78; PULSE 81; RESP 16; TEMP 37.1; O2SAT 98; BMI 33.6
[2022-10-19] MEDS: LACTATED RINGERS 1,000 ML 84 ML IV (09:27)
--- NOTE | 2022-10-19 09:43 | PM.HP.1 ---
History of Present Illness History of Present Illness Date Patient Seen: 10/19/22 Time Patient Seen: 09:44 Chief complaint: SDC Narrative: I reviewed my recent office note. No changes. Patient History Medical History Anemia Asthma Cerda's esophagus COPD (chronic obstructive pulmonary disease) Depression Diverticulosis Edema Esophagitis Fibromyalgia GERD (gastroesophageal reflux disease) Hydradenitis (~2015) Hypertension complications Hypoglycemia IBS (irritable bowel syndrome) MRSA (methicillin resistant Staphylococcus aureus) (~2013) Osteoarthritis Shortness of breath Surgical History Gastric bypass status for obesity (12/2002) History of bilateral tubal ligation History of cholecystectomy History of surgery History of surgery (~2020) History of surgery (~2013) History of total left knee replacement (2013) Hx of appendectomy Hx of bilateral breast reduction surgery Hx of hernia repair Hx of repair of left rotator cuff Hx of toe surgery Hx of tonsillectomy Family & Social History Family History Mother Hypertension Father Diabetes mellitus Social History: household members spouse Tobacco & Substance use: Tobacco type cigarettes Smoking Status Former smoker alcohol intake current alcohol intake frequency 3 or more drinks per day Substance Use Type does not use Meds Home Medications and Allergies Home Medications Medication Instructions Recorded Confirmed Type cyclobenzaprine 10 mg tablet 10 mg PO HS ##0 12/05/16 10/19/22 History magnesium 200 mg tablet 400 mg PO Q DAY ##0 12/05/16 10/19/22 History milk thistle 500 mg capsule 1,000 mg PO DAILY ##0 12/05/16 10/19/22 History trazodone 100 mg tablet 100 mg PO HS ##0 12/05/16 10/19/22 History turmeric 400 mg capsule 1,310 mg PO DAILY ##0 12/05/16 10/19/22 History clotrimazole 10 mg jenniffer 10 mg PO 5XD PRN Thrush ##0 07/09/17 10/19/22 History naltrexone 50 mg tablet 5 mg PO QDAY ##0 07/09/17 10/19/22 History cyanocobalamin (vitamin B-12) 1,000 mcg PO QMONTH 11/01/19 10/19/22 History 1,000 mcg capsule losartan 50 mg tablet 50 mg PO DAILY ##0 12/04/19 10/19/22 History omeprazole 20 mg tablet,delayed 20 mg PO BID ##0 12/04/19 10/19/22 History release oxycodone 10 mg tablet 20 mg PO Q4HP PRN Pain (Scale 12/04/19 10/19/22 History Score 4-6) fluticasone 250 mcg-salmeterol 50 1 inh inhalation BID 10/30/21 10/19/22 History mcg/dose blistr powdr for inhalation (Advair Diskus) montelukast 10 mg tablet 10 mg PO BEDTIME 10/30/21 10/19/22 History hydroxyzine pamoate 25 mg capsule 25 mg PO Q6HR PRN Nausea #30 caps 11/20/21 10/19/22 Rx oxycodone 10 mg tablet 10 mg PO Q4H PRN Pain, Severe 11/20/21 10/19/22 Rx (7-10) #40 tabs Allergies Allergy/AdvReac Type Severity Reaction Status Date / Time adhesive [ADHESIVE] AdvReac Intermediate Redness if Verified 10/19/22 09:08 left on too long Review of Systems Review of Systems ROS: Yes All systems reviewed with the patient and are negative except as otherwise documented Exam Vital Signs (past 8 hours): - 10/19/22 09:13 Temperature 98.7 F Pulse Rate 81 Respiratory Rate 16 Blood Pressure 128/78 Pulse Oximetry 98 Oxygen Delivery Method Room Air Oxygen Delivery Method Room Air Const General: cooperative HENMT Head: normal to inspection Eyes General: appearance normal, both eyes and all related structures Neck Neck: normal visual inspection Chest Chest: normal inspection of the chest Resp Effort & Inspection: normal respiratory effort Cardio Rate: regular rate GI Inspection: normal to inspection Skin General: no rashes or lesions noted Neuro General: patient alert and patient awake Extrem General: normal to inspection and no pedal edema Psych Appearance: grossly normal Assessment & Plan Assessment & Plan narrative: 61-year-old female with a personal history of colon polyps. Colonoscopy is pursued today. Time Spent With Patient Critical Care time: I spent a total of [] minutes of critical care time on this patient's care today; this time is exclusive of procedural time.
--- NOTE | 2022-10-19 09:45 | PM.PREOP ---
Pre-operative Note COVID-19 COVID-19 status: Negative Result date/Date tested (Pos, Neg/Pending): 10/16/22 Criteria for continued procedure: Possibility delay results in more complex future surgery or treatment Interval Note History & Physical reviewed/Exam performed by Physician: Yes Changes to H&P: No ASA Class (for procedural sedation): III
--- NOTE | 2022-10-19 10:43 | PM.OP.COLON ---
Operative Date/Time/Diagnoses Date of procedure: 10/19/22 Time of procedure: 10:43 Pre-op diagnosis: Personal history of colon polyps Post-op diagnosis: same Procedure & Clinicians Study performed: Colonoscopy Same procedure as scheduled: Yes Indications: Personal history of colon polyps Surgeon: Kieran Stevens Procedure Notes SCOAP/Timeout: Done Procedure in detail: After the risks and benefits were explained, written and verbal informed consent was obtained. The patient was brought into the procedure room and placed into the left lateral decubitus position. Please see anesthesia note for sedation details. Digital rectal examination was accomplished. The scope was introduced into the patient and advanced under direct visualization to the cecum as identified by the appendiceal orifice and ileocecal valve. The scope was slowly withdrawn to carefully examine the mucosa for any defects or lesions. Comprehensive imaging was accomplished throughout the rectum including the dentate line. The colon was decompressed, the scope was then removed from the patient who tolerated the procedure well. Pediatric colonoscope Bowel prep fair Scope withdrawal time: 11 minutes Sedation minutes: 20 Specimen(s): none sent Complications: none Impression: There were scattered diverticula in the left colon. Diverticulosis extended all the way even into the right colon. No significant polyps mass lesions or inflammatory features identified throughout within the limitations of bowel prep. Copious irrigation and suction were employed but there were some areas that small polyps could have been overlooked. I could not identify anastomosis in left colon. Endoscopic diagnosis 1. Diverticulosis 2. Otherwise visually unremarkable colonoscopy Post-procedure Plan for aftercare: Repeat colonoscopy 5 years. Disposition: PACU
[2022-10-19 10:45] VITALS: BP 140/70; PULSE 76; RESP 10; TEMP 36.3; O2SAT 98
[2022-10-19 10:50] VITALS: BP 135/80; PULSE 77; RESP 14; O2SAT 98
[2022-10-19 10:55] VITALS: BP 146/86; PULSE 88; RESP 16; O2SAT 98
[2022-10-19 11:12] VITALS: BP 140/89; PULSE 75; RESP 12; TEMP 36.4; O2SAT 98
== END 2022-10-19 11:17 | disposition home or self-care (01) ==
PROVIDERS: PCP Family Medicine; Referring Provider Internal Medicine Gastroenterology; Visit Provider Internal Medicine Gastroenterology
PROC: 0DJD8ZZ Inspection of Lower Intestinal Tract, Via Natural or Artificial Opening Endoscopic (ICD-10-PCS; CPT 45378; principal; 2022-10-19 10:00)
DX: Z12.11 Encounter for screening for malignant neoplasm of colon (principal); Z86.010 Personal history of colon polyps; K57.30 Diverticulosis of large intestine without perforation or abscess without bleeding; D17.5 Benign lipomatous neoplasm of intra-abdominal organs
CPT/HCPCS: G0105; J2250; J2704; J3010

== ENCOUNTER → 2025-07-24 16:44 | Outpatient (CLI) | payer MEDICARE, OTHER, SELFPAY ==
[2021-11-19 18:35] VITALS: BMI 35.4
--- NOTE | 2025-07-24 16:45 | DI.MRI.S_ITS ---
PROCEDURE: MR HIP RT WO CON INDICATIONS: RT HIP PAIN TECHNIQUE: Noncontrast coronal T1 spin echo and STIR through the bony pelvis. Coronal and axial T2 fast spin echo with fat saturation, sagittal T1 spin echo, and oblique axial T2 fast spin echo with fat saturation through the hip. COMPARISON: CR, HIPBILAT 3TO4V W PEL IF PERFD, 12/27/2016, 20:00. FINDINGS: Image quality: Excellent. Bones and joints: Bone marrow of the pelvic ring and proximal femurs show normal signal throughout. Periarticular osteophyte formation at the right hip joint. No intraosseous lesions or fractures. No avascular necrosis of the femoral heads. The visualized lower lumbar spine appears normally aligned. Tendons and ligaments: There is low-grade tearing of the right gluteus minimus muscle and tendon. The nearby proximal iliotibial band also appears intact. The iliopsoas tendon appears intact, without adjacent bursal fluid collections or evidence for impingement syndrome moderate T2 signal elevation within and surrounding the proximal right hamstring tendon. The straight and reflected heads of the rectus femoris muscle origin appear intact, as well as the conjoint tendon. The ligamentum teres appears intact where visualized. Labrum and cartilage: Linear high T2 signal intensity undercuts the anterosuperior right hip labrum. Moderate articular cartilage loss at the right hip joint is present. The alpha angle of the femur is within normal limits at less than 55 degrees. Soft tissues: Visualized muscles demonstrate normal bulk and internal signal. Quadratus femoris muscle demonstrates no internal edema to suggest ischiofemoral impingement. The proximal sciatic neurovascular bundle appears normal adjacent to the hamstring tendons. No free pelvic fluid. Bladder wall thickness is normal. Genitourinary structures and bowel loops appear normal where visualized. IMPRESSION: 1. Right hip osteoarthritis with associated labral tearing and articular cartilage loss. 2. Partial-thickness tearing of the right gluteus minimus muscle and tendon. 3. Right hamstring tendinopathy. Dictated by: Hakan Waddell M.D. on 07/25/2025 at 9:56 Approved by: Hakan Waddell M.D. on 07/25/2025 at 10:06
== END ==
LOC: MRI 16:44
PROVIDERS: PCP Family Medicine; Referring Provider Family Medicine; Visit Provider Family Medicine
DX: S76.011A Strain of muscle, fascia and tendon of right hip, initial encounter (principal); S73.191A Other sprain of right hip, initial encounter; M16.11 Unilateral primary osteoarthritis, right hip; M24.151 Other articular cartilage disorders, right hip; M25.551 Pain in right hip
CPT/HCPCS: 73721